=== PATIENT | female | born 1955 | race Caucasian/White ===

== ENCOUNTER 2021-08-06 08:34 | Day surgery (SDC) | payer BC ==
[2021-08-05 09:14] VITALS: BMI 28.8
[~2021-08-06 08:34] MED LIST: LACTATED RINGERS 1,000 ML IV SCH; LIDOCAINE 1% (10MG/ML) FOR IV START INTRADERMA PRN
[2021-08-06 09:15] VITALS: RESP 16; TEMP 97.1
[2021-08-06] MEDS ORDERED: PROPOFOL 10 MG/ML 20 ML VIAL IV ONE (10:12)
--- NOTE | 2021-08-06 10:42 | P.PCN ---
Date of Procedure: 08/06/21 Procedure(s) Performed: BRIEF HISTORY: Patient is a 65-year-old pleasant white female scheduled for an elective colonoscopy as a part of evaluation of prior history of colon polyps. Last colonoscopy was 3 years ago. PROCEDURE PERFORMED: Colonoscopy with snare polypectomy and Endo Clip placement.. PREOPERATIVE DIAGNOSIS: History of colon polyps. IV sedation per Anesthesia. PROCEDURE: After informed consent was obtained, the patient, was brought into the endoscopy unit. IV sedation was administered by Anesthesia under continuous monitoring. Digital rectal examination was normal. Initially the Olympus CF-160 flexible video colonoscope was then inserted in the rectum, gradually advanced into the cecum without any difficulty. Careful examination was performed as the scope was gradually being withdrawn. Ileocecal valve and the appendiceal orifice were visualized and appeared normal. Prep was excellent. Mucosa of the cecum normal. Ascending colon there was a 3 mm polyp that was removed by cold biopsy. There was another 2 cm polyp removed by snare polypectomy. Following polypectomy Endo Clip was placed to prevent post-polypectomy bleed. Adjacent to this area there were 2 polyps measuring 3-4 mm in size removed by snare polypectomy. In the hepatic flexure there was a 5 mm, 7 mm x2 sessile polyps removed by snare polypectomy. In the transverse colon there was a 5 mm polyp removed by snare polypectomy. Rest of the, ascending colon, transverse colon, descending colon, sigmoid colon, and rectum appeared normal. Retroflexion was performed in the rectum and no lesions were seen. The patient tolerated the procedure well. IMPRESSION: 3 mm ascending colon polyp status post cold biopsy 2 cm broad-based ascending colon polyp status post polypectomy followed by Endo Clip placement. 5 mm, 7 mm 2 hepatic flexure polyp status post polypectomy 5 mm transverse colon polyp status post polypectomy RECOMMENDATIONS: Findings of this examination were discussed with the patientas well as a family. She was advised to follow with the biopsy results. If the biopsies adenoma she can have a repeat colonoscopy in 3 years.].
[2021-08-06 10:58] VITALS: BP 128/71; PULSE 71
== END 2021-08-06 11:22 | disposition home or self-care (01) ==
LOC: ORWHC2ENDO 08:34
PROVIDERS: ATTEND Internal Medicine Gastroenterology
DX: Z12.11 Encounter for screening for malignant neoplasm of colon (principal); D12.0 Benign neoplasm of cecum; D12.2 Benign neoplasm of ascending colon; D12.3 Benign neoplasm of transverse colon; Z86.010 Personal history of colon polyps; E78.5 Hyperlipidemia, unspecified; F17.200 Nicotine dependence, unspecified, uncomplicated; E07.9 Disorder of thyroid, unspecified; Z90.49 Acquired absence of other specified parts of digestive tract; E89.0 Postprocedural hypothyroidism; Z98.890 Other specified postprocedural states; Z79.890 Hormone replacement therapy; Z79.899 Other long term (current) drug therapy
CPT/HCPCS: 88305; 45380; 45385; J2704; 45382